=== PATIENT | male | born 1935 | race Caucasian/White ===

== ENCOUNTER 2017-05-20 04:27 | Observation (INO) | payer OTHER ==
--- NOTE | 2017-05-20 04:30 | EDPHY ---
H & P HPI/ROS: HPI CHIEF COMPLAINT: Epigastric discomfort since midnight. HISTORY OF PRESENT ILLNESS: Patient is a very pleasant 82-year-old male, denies any significant medical history except for hypertension, he denies having cardiovascular disease specifically denies having cardiac disease or heart attack or stroke. States he is otherwise healthy except for hypertension. He presents emergency room by private vehicle with his for epigastric discomfort he describes it as a rather dull ache in the epigastric region. He does not get worse when you press there. He has had nausea associated with but no vomiting. He denies pleuritic pain or shortness of breath. He denies pain up in his chest. He denies radiation of pain specifically the pain does not go to his back jaw arm neck or lower abdomen. It stays in his epigastric region. He states that he had a rather late dinner last night around 938. Around midnight he noticed this pain it has been constant all night decided to get checked out as it has been present for 4 hours or more and he has never had this before. Did have nausea but no vomiting. Denies diarrhea. Past Medical History: Hypertension Past Surgical History: Anal fissure repair Social History: Denies daily use drugs alcohol or tobacco. Occasional alcohol use. 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 Exam Constitutional appears well nontoxic, triage nursing summary reviewed, vital signs reviewed, awake/alert. Eyes normal conjunctivae and sclera, EOMI, PERRLA. HENT normal inspection, atraumatic, moist mucus membranes, no epistaxis, neck supple/ no meningismus, no raccoon eyes. Respiratory clear to auscultation bilaterally, normal breath sounds, no respiratory distress, no wheezing. Cardiovascular rate normal, regular rhythm, no murmur, no edema, distal pulses normal. Gastrointestinal there is mild tenderness palpation epigastric region, no peritoneal signs, no rebound, no guarding, normal bowel sounds, no distension, no pulsatile mass. Genitourinary no CVA tenderness. Musculoskeletal no midline vertebral tenderness, full range of motion, no calf swelling, no tenderness of extremities, no meningismus, good pulses, neurovascularly intact. Skin pink, warm, & dry, no rash, skin atraumatic. Neurologic awake, alert and oriented x 3, AAOx3, moves all 4 extremities equally, motor intact, sensory intact, CN II-XII intact, normal cerebellar, normal vision, normal speech. Psychiatric normal mood/affect. Heme/Lymph/Immune no lymphadenopathy. Differential diagnosis includes but is not limited to and in no particular order : Bowel obstruction, appendicitis, gallbladder disease, diverticulitis, colitis , enteritis, perforated viscus, gastritis, GERD, esophagitis, urinary tract infection, pyelonephritis, kidney stones, ACS, atypical chest pain, pneumothorax, pneumonia, pulmonary embolism, aortic dissection, congestive heart failure, tumor, musculoskeletal pain, esophageal pain, GERD, peptic ulcer disease, pancreatitis Medical Decision Making: Plan for this patient his pain is located epigastric region. Will evaluate cardiac cause of this as well as abdominal caused this. Rule out acute coronary syndrome, rule out pancreatitis check abdominal blood work, check troponin, EKG, upright chest x-ray for free air, GI cocktail to see if this improves his discomfort. Re-evaluation: EKG interpretation by me on record in [employer] system. Impression time of EKG 4:30 a.m., this is sinus rhythm rate of 71. First-degree AV block noted. Appear normal 232. Incomplete right bundle-branch block present. No ST elevation. No significant ST depression or no significant T-wave abnormalities. 0510: Did go re-evaluate this patient after GI cocktail did not help with his discomfort. He did receive 4 mg IV Zofran for nausea which did improve his nausea but he still has epigastric abdominal pain he does state that is going down a little bit into his abdomen. Will give him a dose of IV morphine at this time. 4 mg. additionally waiting blood work including D-dimer. Will most likely need to do a CT scan of his abdomen pelvis with IV contrast help delineate pain. 0630AM: Patient back from CT very comfortable after 1 mg Dilaudid. The GI cocktail did not give him much relief. Nor did the morphine. He did get some relief from the morphine however continued to have some abdominal pain progressing lower in his abdomen. He still hemodynamically stable. Received 1 mg IV Dilaudid which improved his pain is comfortable at this time. CT scan abdomen abdomen pelvis and angiogram of the chest for positive D-dimer and epigastric abdominal pain. The CT scan of the chest abdomen pelvis does not reveal pulmonary embolism nor does show an aortic dissection or AAA aneurysm. However it does show atherosclerotic changes of the aorta, and coronary artery disease. Additionally there are multiple other incidental small findings. Please see full dictation report. Dr. Patterson called the ER for the report. Time reports 6:41 a.m.. 0641: At this time this patient is comfortable with IV Dilaudid. However I do not have a great explanation for his abdominal pain. This could be cardiac in nature. Versus indigestion from late meal last night. 0647: I did repeat this patient's EKG at this time at 6:44 a.m.. This is sinus rhythm rate of 65. First-degree AV block. Left axis deviation. MT interval 236. No acute ischemic change on this EKG. Re-evaluation time 6:47 a.m: At this time this patient has no chest pain or shortness of breath he is resting comfortably. I went over in detail his workup including a CT scan of his chest abdomen pelvis. Additionally his blood work. I do not have a great explanation for his dull ache in his epigastric region. However given his age and cardiac risk factors he has a heart score of 4. He will be admitted to the hospitalist service for further observation cardiac evaluation. His abdomen is not peritoneal. He does not have a surgical abdomen his CT scan does not reveal anything acute. I do not feel that this time he needs a surgical consult however I do feel that he needs to be admitted today to be observed. He is agreeable for this plan. Dr. Evans has been consulted. Source: Patient Constitutional: Initial Vital Signs Temperature (C) 36.4 C 05/20/17 04:34 Heart Rate 60 05/20/17 04:34 Respiratory Rate 17 05/20/17 04:34 Blood Pressure 147/82 H 05/20/17 04:34 O2 Sat (%) 95 05/20/17 04:34 O2 Delivery Mode Room Air Allergies/Adverse Reactions: No Known Allergies Allergy (Unverified 05/20/17 04:38) Home Medications: Medication Instructions Recorded Lisinopril 05/20/17 Medical Decision Making - Data Points Laboratory Results: Laboratory Results 05/20/17 04:40 05/20/17 04:40 05/20/17 05/20/17 05/20/17 06:15 05:28 04:40 WBC RBC Hgb Hct MCV MCH MCHC RDW Plt Count MPV Neut % (Auto) Lymph % (Auto) [place] % (Auto) Eos % (Auto) Baso % (Auto) Nucleat RBC Rel Count Absolute Neuts (auto) Absolute Lymphs (auto) Absolute Monos (auto) Absolute Eos (auto) Absolute Basos (auto) Absolute Nucleated RBC Immature Gran % Immature Gran # PT INR APTT D-Dimer VBG Lactic Acid 2.1 mmol/L mmol/L (0.7-2.1) Sodium 139 mEq/L mEq/L (134-144) Potassium 4.2 mEq/L mEq/L (3.5-5.2) Chloride 105 mEq/L mEq/L (97-110) Carbon Dioxide 23 mEq/l mEq/l (22-31) Anion Gap 11 mEq/L mEq/L (8-16) BUN 21 mg/dL mg/dL (7-23) Creatinine 1.0 mg/dL mg/dL (0.7-1.3) Estimated GFR > 60 Glucose 139 mg/dL H mg/dL (70-100) Calcium 9.6 mg/dL mg/dL (8.5-10.4) Magnesium 1.9 mg/dL mg/dL (1.6-2.3) Total Bilirubin 0.3 mg/dL mg/dL (0.1-1.4) Conjugated Bilirubin 0.1 mg/dL mg/dL (0.0-0.5) Unconjugated Bilirubin 0.2 mg/dL mg/dL (0.0-1.1) AST 35 IU/L IU/L (17-59) ALT 38 IU/L IU/L (21-72) Alkaline Phosphatase 83 IU/L IU/L (38-126) Creatine Kinase 195 IU/L IU/L (0-224) CK-MB (CK-2) Fraction 2.48 ng/mL ng/mL (0.00-3.19) Troponin I < 0.012 ng/mL ng/mL (0.000-0.034) NT-Pro-B Natriuret Pep 58 pg/mL pg/mL (0-450) Total Protein 7.3 g/dL g/dL (6.3-8.2) Albumin 4.2 g/dL g/dL (3.5-5.0) Lipase 185 IU/L IU/L (23-300) Urine Color Pending Urine Appearance Pending Urine pH Pending Ur Specific [place] Pending Urine Protein Pending Urine Ketones Pending Urine Blood Pending Urine Nitrate Pending Urine Bilirubin Pending Urine Urobilinogen Pending Ur Leukocyte Esterase Pending Urine Glucose Pending 05/20/17 05/20/17 04:40 04:40 WBC 6.44 10^3/uL 10^3/uL (3.80-9.50) RBC 3.92 10^6/uL L 10^6/uL (4.40-6.38) Hgb 14.0 g/dL g/dL (13.7-17.5) Hct 38.6 % L % (40.0-51.0) MCV 98.5 fL fL (81.5-99.8) MCH 35.7 pg H pg (27.9-34.1) MCHC 36.3 g/dL g/dL (32.4-36.7) RDW 13.4 % % (11.5-15.2) Plt Count 254 10^3/uL 10^3/uL (150-400) MPV 9.5 fL fL (8.7-11.7) Neut % (Auto) 52.4 % % (39.3-74.2) Lymph % (Auto) 33.2 % % (15.0-45.0) [place] % (Auto) 8.5 % % (4.5-13.0) Eos % (Auto) 4.8 % % (0.6-7.6) Baso % (Auto) 0.9 % % (0.3-1.7) Nucleat RBC Rel Count 0.0 % % (0.0-0.2) Absolute Neuts (auto) 3.37 10^3/uL 10^3/uL (1.70-6.50) Absolute Lymphs (auto) 2.14 10^3/uL 10^3/uL (1.00-3.00) Absolute Monos (auto) 0.55 10^3/uL 10^3/uL (0.30-0.80) Absolute Eos (auto) 0.31 10^3/uL 10^3/uL (0.03-0.40) Absolute Basos (auto) 0.06 10^3/uL 10^3/uL (0.02-0.10) Absolute Nucleated RBC 0.00 10^3/uL 10^3/uL (0-0.01) Immature Gran % 0.2 % % (0.0-1.1) Immature Gran # 0.01 10^3/uL 10^3/uL (0.00-0.10) PT 12.2 SEC SEC (12.0-15.0) INR 0.91 (0.83-1.16) APTT 25.9 SEC SEC (23.0-38.0) D-Dimer 1.15 ug/mLFEU H ug/mLFEU (0.00-0.50) VBG Lactic Acid Sodium Potassium Chloride Carbon Dioxide Anion Gap BUN Creatinine Estimated GFR Glucose Calcium Magnesium Total Bilirubin Conjugated Bilirubin Unconjugated Bilirubin AST ALT Alkaline Phosphatase Creatine Kinase CK-MB (CK-2) Fraction Troponin I NT-Pro-B Natriuret Pep Total Protein Albumin Lipase Urine Color Urine Appearance Urine pH Ur Specific [place] Urine Protein Urine Ketones Urine Blood Urine Nitrate Urine Bilirubin Urine Urobilinogen Ur Leukocyte Esterase Urine Glucose Medications Given: Discontinued Medications Al Hydroxide/Mg Hydroxide (Maalox Susp) 30 ml PO ONCE ONE Stop: 05/20/17 04:37 Last Admin: 05/20/17 04:44 Dose: 30 ml Hydromorphone HCl (Dilaudid) 1 mg IVP EDNOW ONE Stop: 05/20/17 05:30 Last Admin: 05/20/17 06:01 Dose: Not Given Hydromorphone HCl (Dilaudid) 1 mg IVP EDNOW ONE Stop: 05/20/17 06:12 Last Admin: 05/20/17 06:17 Dose: 1 mg Hyoscyamine Sulfate (Levsin, Hyomax-Sl) 0.25 mg PO ONCE ONE Stop: 05/20/17 04:37 Last Admin: 05/20/17 04:44 Dose: 0.25 mg Sodium Chloride (Ns) 1,000 mls @ 0 mls/hr IV EDNOW ONE; Wide Open PRN Reason: Protocol Stop: 05/20/17 04:37 Last Admin: 05/20/17 04:44 Dose: 1,000 mls Lidocaine (Lidocaine 2% Viscous) 15 ml PO ONCE ONE Stop: 05/20/17 04:37 Last Admin: 05/20/17 04:44 Dose: 15 ml Morphine Sulfate (Morphine) 4 mg IVP EDNOW ONE Stop: 05/20/17 05:11 Last Admin: 05/20/17 05:12 Dose: 4 mg Ondansetron HCl (Zofran) 4 mg IVP EDNOW ONE Stop: 05/20/17 04:52 Last Admin: 05/20/17 04:52 Dose: 4 mg Departure - Departure Disposition: [facility] Inpatient Acute Clinical Impression: Abdominal pain Qualifiers: Abdominal location: epigastric Qualified Code(s): R10.13 - Epigastric pain Condition: Fair Referrals: JABARI BUTT [Primary Care Provider] - As per Instructions
[2017-05-20] MEDS ORDERED: LIDOCAINE 2% VISCOUS 15 ML UDCUP PO ONE (04:36)
[2017-05-20] MEDS ORDERED: HYOSCYAMINE SULFATE 0.125 MG TAB PO ONE (04:36)
[2017-05-20] MEDS ORDERED: MAG HYDROX/AL HYDROX/SIMETH 30 ML UDCUP PO ONE (04:36)
[2017-05-20] MEDS ORDERED: NS 1,000 ML IV ONE (04:36)
[2017-05-20] MEDS ORDERED: ONDANSETRON 4 MG/2 ML VIAL IVP ONE (04:51)
[2017-05-20 04:54] LABS: % IMMATURE GRANULYOCYTES 0.2 % (0.0-1.1); ABSOLUTE IMMATURE GRANULOCYTES 0.01 10^3/uL (0.00-0.10); ADD DIFF? NO; ADD MORPH? NO; ADD SCAN? NO; ATYPICAL LYMPHOCYTE FLAG 0 (0-99); FRAGMENT RBC FLAG 40 (0-99); HEMATOCRIT 38.6 % (40.0-51.0); LEFT SHIFT FLG 0 (0-99); LIPEMIA HEMOLYSIS FLAG 90 (0-99); MEAN CELL HEMOGLOBIN 35.7 pg (27.9-34.1); MEAN CELL HEMOGLOBIN CONCENTR. 36.3 g/dL (32.4-36.7); MEAN CELL VOLUME 98.5 fL (81.5-99.8); MEAN PLATELET VOLUME 9.5 fL (8.7-11.7); PLATELET CLUMPS FLAG 0 (0-99); PLATELET COUNT 254 10^3/uL (150-400); RED BLOOD CELL COUNT 3.92 10^6/uL (4.40-6.38); RED CELL DISTRIBUTION WIDTH 13.4 % (11.5-15.2)
[2017-05-20 05:03] LABS: INR 0.91 (0.83-1.16); PROTIME(PATIENT) 12.2 SEC (12.0-15.0)
[2017-05-20 05:04] LABS: APTT 25.9 SEC (23.0-38.0)
[2017-05-20 05:08] LABS: ALANINE AMINOTRANSFERASE 38 IU/L (21-72); ALBUMIN 4.2 g/dL (3.5-5.0); ALKALINE PHOSPHATASE 83 IU/L (38-126); ANION GAP 11 mEq/L (8-16); ASPARTATE AMINOTRANSFERASE 35 IU/L (17-59); BILIRUBIN,TOTAL 0.3 mg/dL (0.1-1.4); BILIRUBIN-CONJUGATED 0.1 mg/dL (0.0-0.5); BILIRUBIN-UNCONJUGATED 0.2 mg/dL (0.0-1.1); CALCIUM 9.6 mg/dL (8.5-10.4); CARBON DIOXIDE 23 mEq/l (22-31); CHLORIDE 105 mEq/L (97-110); GLOMERULAR FILTRATION RATE > 60; GLUCOSE 139 mg/dL (70-100); MAGNESIUM 1.9 mg/dL (1.6-2.3); POTASSIUM 4.2 mEq/L (3.5-5.2); SODIUM 139 mEq/L (134-144); TOTAL PROTEIN 7.3 g/dL (6.3-8.2)
[2017-05-20 05:20] LABS: CREATINE KINASE-MB FRACTION 2.48 ng/mL (0.00-3.19); TROPONIN I < 0.012 ng/mL (0.000-0.034)
[2017-05-20] MEDS ORDERED: IOPAMIDOL (ISOVUE 370) 100 ML BTL IV ONE (05:23)
[2017-05-20] MEDS ORDERED: HYDROmorphONE/DILAUDID 1 MG/ML INJ IVP ONE ×2 (05:29→06:11)
--- NOTE | 2017-05-20 05:45 | CPEKG ---
Heart Rate: 71 RR Interval: 845 P-R Interval: 232 QRSD Interval: 106 QT Interval: 400 QTC Interval: 435 P [place]: 56 QRS [place]: -23 T Wave [place]: 48 EKG Severity - ABNORMAL ECG - EKG Impression: SINUS RHYTHM EKG Impression: FIRST DEGREE AV BLOCK EKG Impression: INCOMPLETE RIGHT BUNDLE BRANCH BLOCK Electronically Signed By: Patel Carranza 20-May-2017 07:09:57
[2017-05-20 06:36] LABS: COLOR YELLOW; LEUKOCYTE ESTERASE,URINE NEGATIVE (NEGATIVE); NITRITE,URINE NEGATIVE (NEGATIVE)
--- NOTE | 2017-05-20 06:45 | CPEKG ---
Heart Rate: 65 RR Interval: 923 P-R Interval: 236 QRSD Interval: 102 QT Interval: 416 QTC Interval: 433 P [place]: 46 QRS [place]: -33 T Wave [place]: 38 EKG Severity - ABNORMAL ECG - EKG Impression: SINUS RHYTHM EKG Impression: FIRST DEGREE AV BLOCK EKG Impression: LEFT AXIS DEVIATION Electronically Signed By: Patel Carranza 20-May-2017 07:09:57
[2017-05-20] MEDS ORDERED: ONDANSETRON 4 MG/2 ML VIAL IVP PRN (07:50)
[2017-05-20] MEDS ORDERED: HYDROCODONE/APAP 5/325 TAB PO PRN (07:50)
[2017-05-20] MEDS ORDERED: ACETAMINOPHEN 325 MG TAB PO PRN (07:50)
[2017-05-20] MEDS ORDERED: HYDROmorphONE/DILAUDID 1 MG/ML INJ IVP PRN (07:50)
[2017-05-20 07:54] VITALS: PULSE 65
[2017-05-20] MEDS ORDERED: NS 1,000 ML IV SCH (08:00)
[2017-05-20] MEDS ORDERED: LISINOPRIL 40 MG TAB PO SCH (09:00)
[2017-05-20] MEDS ORDERED: OMEGA-3 FATTY ACIDS 1,000 MG CAP PO SCH (09:00)
--- NOTE | 2017-05-20 09:53 | PDGENHP ---
History and Physical - Chief Complaint epigastric pain - History of Present Illness 82 yo M with no significant PMH other than HTN presenting with epigastric pain. Pain began last night late, he notes he had eaten low and sauerkraut for dinner and he wondered if that precipitated the pain. There was some pain near his umbilicus as well but no chest pain. He has never had similar sxs in the past. He has not had diarrhea but did have some nausea but no vomiting. He currently notes that the pain is essentially resolved and he feels hungry. History Information - Allergies/Home Medication List Allergies/Adverse Reactions: No Known Allergies Allergy (Unverified 05/20/17 04:38) Home Medications: Herbals/Supplements -Info Only 1 ea PO DAILY 05/20/17 [Last Taken Unknown] Lisinopril [Zestril 40 mg (*)] 40 mg PO DAILY 05/20/17 [Last Taken 05/19/17] [place]-3 Fatty Acids [Fish Oil 1000 mg (*)] 1,000 mg PO DAILY 05/20/17 [Last Taken 05/19/17] Simvastatin [Zocor] 40 mg PO HS 05/20/17 [Last Taken 05/19/17] I have personally reviewed and updated: family history, medical history, social history, surgical history - Past Medical History hypertension, hyperlipidemia - Surgical History Additional surgical history: anal fissure repair. knee arthroscopy - Family History Positive for: non-pertinent - Social History Smoking Status: Never smoked Alcohol Use: Occasionally Drug Use: None Review of Systems Review of Systems: ROS: 10pt was reviewed & negative except for what was stated in HPI & below Physical Exam Physical Exam: Temp Pulse Resp BP Pulse Ox 36.6 C 65 14 133/77 H 91 L 05/20/17 07:49 05/20/17 07:49 05/20/17 07:49 05/20/17 09:50 05/20/17 07:49 Constitutional: no apparent distress, appears nourished Eyes: PERRL Ears, Nose, Mouth, Throat: moist mucous membranes, hearing normal, ears appear normal Cardiovascular: regular rate and rhythym, no murmur, rub, or gallop, No edema Respiratory: no respiratory distress, no rales or rhonchi, clear to auscultation Gastrointestinal: normoactive bowel sounds, soft, non-tender abdomen, No guarding, No rebound, No distension Genitourinary: no bladder tenderness Skin: warm, normal color Musculoskeletal: full muscle strength Neurologic: AAOx3 Psychiatric: interacting appropriately, not anxious, not encephalopathic Lab Data & Imaging Review 05/20/17 04:40 05/20/17 04:40 WBC 6.44 10^3/uL (3.80-9.50) 05/20/17 04:40 RBC 3.92 10^6/uL (4.40-6.38) L 05/20/17 04:40 Hgb 14.0 g/dL (13.7-17.5) 05/20/17 04:40 Hct 38.6 % (40.0-51.0) L 05/20/17 04:40 MCV 98.5 fL (81.5-99.8) 05/20/17 04:40 MCH 35.7 pg (27.9-34.1) H 05/20/17 04:40 MCHC 36.3 g/dL (32.4-36.7) 05/20/17 04:40 RDW 13.4 % (11.5-15.2) 05/20/17 04:40 Plt Count 254 10^3/uL (150-400) 05/20/17 04:40 MPV 9.5 fL (8.7-11.7) 05/20/17 04:40 Neut % (Auto) 52.4 % (39.3-74.2) 05/20/17 04:40 Lymph % (Auto) 33.2 % (15.0-45.0) 05/20/17 04:40 [place] % (Auto) 8.5 % (4.5-13.0) 05/20/17 04:40 Eos % (Auto) 4.8 % (0.6-7.6) 05/20/17 04:40 Baso % (Auto) 0.9 % (0.3-1.7) 05/20/17 04:40 Nucleat RBC Rel Count 0.0 % (0.0-0.2) 05/20/17 04:40 Absolute Neuts (auto) 3.37 10^3/uL (1.70-6.50) 05/20/17 04:40 Absolute Lymphs (auto) 2.14 10^3/uL (1.00-3.00) 05/20/17 04:40 Absolute Monos (auto) 0.55 10^3/uL (0.30-0.80) 05/20/17 04:40 Absolute Eos (auto) 0.31 10^3/uL (0.03-0.40) 05/20/17 04:40 Absolute Basos (auto) 0.06 10^3/uL (0.02-0.10) 05/20/17 04:40 Absolute Nucleated RBC 0.00 10^3/uL (0-0.01) 05/20/17 04:40 Immature Gran % 0.2 % (0.0-1.1) 05/20/17 04:40 Immature Gran # 0.01 10^3/uL (0.00-0.10) 05/20/17 04:40 PT 12.2 SEC (12.0-15.0) 05/20/17 04:40 INR 0.91 (0.83-1.16) 05/20/17 04:40 APTT 25.9 SEC (23.0-38.0) 05/20/17 04:40 D-Dimer 1.15 ug/mLFEU (0.00-0.50) H 05/20/17 04:40 VBG Lactic Acid 2.1 mmol/L (0.7-2.1) 05/20/17 05:28 Sodium 139 mEq/L (134-144) 05/20/17 04:40 Potassium 4.2 mEq/L (3.5-5.2) 05/20/17 04:40 Chloride 105 mEq/L (97-110) 05/20/17 04:40 Carbon Dioxide 23 mEq/l (22-31) 05/20/17 04:40 Anion Gap 11 mEq/L (8-16) 05/20/17 04:40 BUN 21 mg/dL (7-23) 05/20/17 04:40 Creatinine 1.0 mg/dL (0.7-1.3) 05/20/17 04:40 Estimated GFR > 60 05/20/17 04:40 Glucose 139 mg/dL (70-100) H 05/20/17 04:40 Calcium 9.6 mg/dL (8.5-10.4) 05/20/17 04:40 Magnesium 1.9 mg/dL (1.6-2.3) 05/20/17 04:40 Total Bilirubin 0.3 mg/dL (0.1-1.4) 05/20/17 04:40 Conjugated Bilirubin 0.1 mg/dL (0.0-0.5) 05/20/17 04:40 Unconjugated Bilirubin 0.2 mg/dL (0.0-1.1) 05/20/17 04:40 AST 35 IU/L (17-59) 05/20/17 04:40 ALT 38 IU/L (21-72) 05/20/17 04:40 Alkaline Phosphatase 83 IU/L (38-126) 05/20/17 04:40 Creatine Kinase 195 IU/L (0-224) 05/20/17 04:40 CK-MB (CK-2) Fraction 2.48 ng/mL (0.00-3.19) 05/20/17 04:40 Troponin I < 0.012 ng/mL (0.000-0.034) 05/20/17 04:40 NT-Pro-B Natriuret Pep 58 pg/mL (0-450) 05/20/17 04:40 Total Protein 7.3 g/dL (6.3-8.2) 05/20/17 04:40 Albumin 4.2 g/dL (3.5-5.0) 05/20/17 04:40 Lipase 185 IU/L (23-300) 05/20/17 04:40 Urine Color YELLOW 05/20/17 06:15 Urine Appearance CLEAR 05/20/17 06:15 Urine pH 5.0 (5.0-7.5) 05/20/17 06:15 Ur Specific [place] > 1.035 (1.002-1.030) H 05/20/17 06:15 Urine Protein NEGATIVE (NEGATIVE) 05/20/17 06:15 Urine Ketones NEGATIVE (NEGATIVE) 05/20/17 06:15 Urine Blood NEGATIVE (NEGATIVE) 05/20/17 06:15 Urine Nitrate NEGATIVE (NEGATIVE) 05/20/17 06:15 Urine Bilirubin NEGATIVE (NEGATIVE) 05/20/17 06:15 Urine Urobilinogen NEGATIVE EU (0.2-1.0) 05/20/17 06:15 Ur Leukocyte Esterase NEGATIVE (NEGATIVE) 05/20/17 06:15 Urine Glucose NEGATIVE (NEGATIVE) 05/20/17 06:15 Visualized and Interpreted Chest x-ray results: Yes Chest X-Ray results: no infiltrate Visualized and Interpreted imaging results: Yes Interpretation: abd CT: no aneurysm, small hiatal hernia. chest CTA: no PE, no aneurysm or dissection, bronchiectasis and mild bronchitis Visualized and Interpreted EKG results: Yes EKG Interpretation: Positive for: normal sinsus rhythm, right bundle branch block EKG additional interpertation: 1st degree AV block Assessment & Plan Assessment: Abdominal pain (Acute) 82 yo M with pmh of htn, hld presenting with mid epigastric pain # mid epigastric pain: essentially resolved, occurred after eating a late dinner of low and sauerkraut, was always relatively mild per his report. Does have a known hiatal hernia and query if this is simply related to indigestion/gerd although he denies any pain in the chest whatsoever. Doubt this represents an anginal equivalent but will obtain serial trops and monitor on tele. If second trop negative, pain remains resolved, would favor dc home later today. LFTs and lipase wnl, advancing diet. # HTN: BP only mildly high prior to getting home bp meds, continue lisinopril # HLD: will continue statin # dispo: observation status, will likely not require > 48 hours stay unless clinical status changes Patient new to my care. Old records reviewed and summarized as above. Care plan reviewed with ER doctor.
[2017-05-20 11:40] VITALS: O2SAT 92
[2017-05-20 15:17] VITALS: BP 115/53; RESP 20; TEMP 99
--- NOTE | 2017-05-20 18:20 | PDDCSUM ---
Discharge Summary Discharge Summary: Dates of service --admit and discharge 05/20/17 Consultations: none Procedures: abd CT, chest CTA Hospital course by problem: # mid epigastric pain: essentially resolved, occurred after eating a late dinner of low and sauerkraut, was always relatively mild per his report. Does have a known hiatal hernia and query if this is simply related to indigestion/gerd although he denies any pain in the chest whatsoever. Nothing to suggest anginal equivalent trop negative and ecg w/o ischemia. Will have patient f/u with pcp # HTN: BP only mildly high prior to getting home bp meds, continue lisinopril # HLD: will continue statin dc home f/u with pcp
[2017-05-20] MEDS ORDERED: ATORVASTATIN CALCIUM 20 MG TAB PO SCH (21:00)
[2017-05-20] MEDS ORDERED: NON-FORMULARY NEW DRUG (Simvastatin [Zocor] 40 MG) PO SCH (21:00)
== END 2017-05-20 20:01 | disposition home or self-care (01) ==
LOC: F3E 07:47
PROVIDERS: ADMIT Family Medicine; ATTEND Family Medicine
DX: R10.13 Epigastric pain (principal); I10 Essential (primary) hypertension; E78.5 Hyperlipidemia, unspecified
CPT/HCPCS: 71010; 71275; 74177; 93005; G0378; J1170; J2405; Q9967; 96374

== ENCOUNTER → 2017-10-02 | Outpatient (CLI) | payer OTHER | LOC: FIMAGING 16:29 | PROVIDERS: ATTEND Family Medicine | DX: K40.91 Unilateral inguinal hernia, without obstruction or gangrene, recurrent (principal) ==